=== PATIENT | male | born 1985 | race Two or more races ===

== ENCOUNTER 2023-07-22 03:05 | Emergency (ER) | payer MEDICAID, OTHER ==
[~2023-07-22] VITALS: Ht 172.7 cm; Wt 104.5 kg
[2023-07-22 03:42] VITALS: BP 121/89; PULSE 122; RESP 16; O2SAT 98
[2023-07-22] MEDS: KETOROLAC TROMETH 60MG/2ML VIAL IM ONE (04:41)
[2023-07-22] MEDS ORDERED: IBUP-1455 PO (05:25)
[2023-07-22] MEDS ORDERED: CYCL-839 PO (05:25)
[2023-07-22] MEDS ORDERED: HYDR-4798 PO (05:42)
== END 2023-07-22 05:51 | disposition home or self-care (01) ==
LOC: ER 03:05 → EDBD 03:05 → ER 05:50
DX: S02.2XXA Fracture of nasal bones, initial encounter for closed fracture (principal); M79.18 Myalgia, other site; M79.602 Pain in left arm; M79.605 Pain in left leg; V43.52XA Car driver injured in collision with other type car in traffic accident, initial encounter; Y93.89 Activity, other specified; Y92.488 Other paved roadways as the place of occurrence of the external cause; Y99.8 Other external cause status
CPT/HCPCS: 70450; 70486; 72125; 72170; 73552; 73590; 96372; 99285; J1885